=== PATIENT | female | born 1970 | race Caucasian/White ===

== ENCOUNTER 2021-04-09 06:09 | Emergency (ER) | payer MEDICAID, SELFPAY ==
[2021-04-09 06:12] VITALS: BP 126/74; PULSE 70; RESP 16; TEMP 36.2; O2SAT 97; BMI 31.4
--- NOTE | 2021-04-09 06:27 | CT_ITS ---
STUDY: CT BRAIN WITHOUT CONTRAST REASON FOR EXAM: Female, 50 years old. trauma, headache RADIATION DOSAGE (If Supplied By Facility): CTDIvol = ( 44.99 ) mGy, DLP = ( 745.49 ) mGycm TECHNIQUE: Transaxial CT imaging of the brain was performed without administration of intravenous contrast material. Individualized dose optimization techniques were used for this CT. COMPARISON: No relevant priors. FINDINGS: Normal soft tissue structures. Normal calvarium. Normal size ventricles and extra-axial spaces for the patient''s age. Normal white matter tracts of the cerebral hemispheres. Normal basal ganglia and thalami. Normal brainstem. Normal cerebellum. There is no intracranial hemorrhage. There are no findings of an acute ischemic infarction. Normal visualized paranasal sinuses. CT/Brain/Head without Contrast IMPRESSION: Normal unenhanced CT scan of the brain. Electronically Signed: Rodri Dan MD at 7:58 EST Tel , Service support ,
--- NOTE | 2021-04-09 06:31 | CT_ITS ---
STUDY: CT FACIAL BONES WITHOUT CONTRAST REASON FOR EXAM: Female, 50 years old. trauma, facial pain RADIATION DOSAGE (If Supplied By Facility): CTDIvol = ( 29.38 ) mGy, DLP = ( 554.80 ) mGycm TECHNIQUE: The patient was scanned in a multi detector CT scanner. Sagittal and coronal images were reconstructed. Individualized dose optimization techniques were used for this CT. COMPARISON: None. FINDINGS: Normal soft tissue structures. Acute fracture the floor the left orbit with herniation of intraorbital fat into the roof of the maxillary sinus and a small amount of hemorrhage in the maxillary sinus. No entrapment of the inferior rectus muscle. Normal nasal bones and anterior nasal spine. Normal facial bones. There is no demonstrated fracture. Normal visualized paranasal sinuses. CT/Sinus/Facial Bone IMPRESSION: Acute left orbital floor fracture. Electronically Signed: Rodri Dan MD at 8:08 EST Tel , Service support ,
--- NOTE | 2021-04-09 06:32 | EKG12_ITS ---
Test Reason : ABD PAIN Blood Pressure : / mmHG Vent. Rate : 074 BPM Atrial Rate : 074 BPM P-R Int : 170 ms QRS Dur : 090 ms QT Int : 428 ms P-R-T Axes : 028 011 008 degrees QTc Int : 475 ms Normal sinus rhythm Normal ECG Confirmed by REGGIE SAUCEDO, CONNIE ([id number]), technical writer and editor HAKEEM PEARL ([id number]) on 04/11/2021 8:07:23 AM Referred By: BB Confirmed By:CONNIE PAREDES MD
--- NOTE | 2021-04-09 06:33 | EDS_ITS ---
HPI History of Present Illness Chief Complaint: Abd Pain Informant: patient Narrative Narrative: For the past 3 days, patient has had heavy menstrual cycles. Her last couple cycles have been like this, she thinks she may be going through menopause here soon. This morning she had gotten up, soon thereafter she had some very intense lower abdominal pain/cramping, and this was followed by lightheadedness, and she remembers feeling like she was going to pass out and woke up on the floor having had passed out, and hit her head/face. She states this is never happened before. She denies any other prodromal symptoms except for the abdominal cramping and lightheadedness. No chest pain, shortness of breath, palpitations or racing heartbeat, focal neurologic symptoms, or headache although she has one now after having hit her head on the floor she thinks. She was in her bathroom. No recent illness otherwise. Patient states now the abdominal pain is resolved and although her head hurts, her abdomen does not anymore. PFSH PFSH Medical History no medical history no medical history Home Medications promethazine 25 mg PO Q6H PRN PRN #10 tablet 04/09/21 [Rx Last Taken Unknown] trazodone 150 mg PO QHS PRN 04/09/21 [History Last Taken Unknown] Allergy/AdvReac Type Severity Reaction Status Date / Time No Known Allergies Allergy Verified 04/09/21 06:11 Surgical History no surgical history no surgical history Social History Smoking Status: Never smoker ROS ROS ED Constitutional Constitutional ED: Denies chills or fever(s) Eyes Eyes: Denies change in vision or diplopia ENT ENT ED: Reports facial pain; Denies rhinorrhea or sore throat Cardiovascular Cardiovascular: Denies chest pain or palpitations Respiratory/Chest Respiratory/Chest: Denies cough or dyspnea Gastrointestinal Gastrointestinal: Reports abdominal pain and nausea; Denies diarrhea or vomiting Genitourinary Genitourinary ED: Denies dysuria or hematuria Musculoskeletal Musculoskeletal: Denies back pain or neck pain Integumentary Reports laceration; Denies abscess or rash Neurologic Neurologic: Reports as per HPI, headache(s) and syncope; Denies paresthesias or weakness Psychiatric Psychiatric: Denies anxiety or suicidal thoughts EXAM Physical Exam Const Vital Signs: 04/09/21 06:12 Temperature 97.2 F L Temperature Source Temporal Pulse Rate 70 Respiratory Rate 16 Blood Pressure 126/74 H Blood Pressure Mean 91 Pulse Ox 97 Oxygen Delivery Method Room Air Positive well nourished and well developed General Appearance ED: well developed and NAD HEENT Reports EAC's normal, TM's normal bilaterally and moist mucous membranes HEENT Narrative: No midface instability but tenderness in the left maxilla, across the frontal bone, and around the left orbit. No periorbital edema, no deformities, no zygomatic tenderness, no nasal bone tenderness or epistaxis, no trismus or jaw tenderness, no signs of globe injury. normocephalic, atraumatic, laceration Laceration Details: Positive for linear and other (Left cheek, full-thickness) Laceration Size: 2.5cm and other; Negative for Browning's sign or raccoon eyes Eyes PERRL and EOMs intact bilaterally Eyes Narrative: No extraocular entrapment or pain with movement. Visual van all intact. Neck full ROM and supple Resp normal respiratory effort and clear to auscultation bilaterally Cardio regular rate, regular rhythm and no murmurs GI non-tender and non-distended Auscultation: normoactive bowel sounds Palpation: soft; Negative for pulsatile mass Back/Spine no CVA tenderness General Back: other FROM Extremity normal to inspection General Extremety ED: Negative for edema, pulses abnormal or tenderness General Extremity: Negative for edema or pulses abnormal Neuro oriented x3, CN's II-XII intact bilaterally and no sensory deficits noted Sensorium / Orientation: awake and alert Motor Exam: strength 5/5 throughout Skin no rashes or lesions noted Skin Narrative: 2.5 cm linear clean full-thickness laceration left cheek MDM MDM MDM Narrative Medical decision making narrative: My suspicion is that patient had a vagal episode from menstrual cramping that occurred just prior to the episode. She said the abdominal pain which is currently resolved did feel like menstrual pains. She is a little anemic at 9.4, but not low enough to cause any need for admission, blood transfusion, etc. I do not have any old/prior measurements for her to compare to. It is microcytic, and quite possibly stable for her normal. Other chemistries and troponin normal. Since her EKG is normal, and she had no concerning symptoms of angina, I do not think she needs a delta measurement. Her laceration was repaired. Nurses will perform orthostatics, she will get 1/2 L of saline regardless, and she was treated with Zofran, Tylenol for her symptoms. Patient underwent CT of the head and face to rule out intracranial or bony injuries, these scans are unremarkable. I suspect her syncopal episode occurred as a result of a vasovagal reaction triggered by the abdominal/pelvic pain. Her vital signs are normal, she has no tenderness or pulsatile mass in her abdomen and I do not think she had any intra-abdominal catastrophe here. She still feels a little nauseated and has a headache, so we will additionally give her Reglan and Toradol, and after her fluids will discharge her with a prescription for more Reglan if needed. Close outpatient follow-up advised, she is comfortable with that plan. Lab Data Attestation: I reviewed the patient's lab results. Labs: Laboratory Results - last 24 hr 04/09/21 04/09/21 06:12 06:12 WBC 9.8 RBC 4.36 Hgb 9.4 L Hct 31.2 L MCV 71.6 L MCH 21.6 L MCHC 30.1 L RDW Std Deviation 42.0 RDW Coeff of Avinash 16.4 H Plt Count 436 MPV 10.3 Immature Gran % (Auto) 0.400 Neut % (Auto) 52.8 Lymph % (Auto) 36.9 Hendricks % (Auto) 7.3 Eos % (Auto) 2.2 Baso % (Auto) 0.4 Absolute Neuts (auto) 5.2 Absolute Lymphs (auto) 3.60 Nucleated RBC % 0 Sodium 138 Potassium 3.6 Chloride 108 H Carbon Dioxide 23.0 Anion Gap 7 BUN 16 Creatinine 0.82 Estim Creat Clear Calc 76.84 Est GFR (MDRD) Af Amer 95 Est GFR (MDRD) Non-Af 79 BUN/Creatinine Ratio 19.6 Glucose 166 H Calcium 8.3 L Troponin I High Sens 4 EKG Initial EKG: Attestation: I personally reviewed and interpreted this EKG as follows: Interpretation: Sinus Rhythm (74) and No Acute Injury Pattern Comments: normal EKG Procedures Lacerations L cheek: Length: 2.5 cm Depth: Sub Q Shape: Linear Prep: Sterile Conditions and Chlorhexadine Laceration repair: Lidocaine with epi (2cc), Local and Skin sutures Number of Sutures/Silva: 3 Suture Information: Ethilon, Simple and 6-0 Discharge Plan Triage Chief Complaint: Abd Pain ED Provider: Jackson Christiansen Dx/Rx/DC Orders Clinical Impression: Syncope, Facial laceration, Menorrhagia, Microcytic anemia, Closed head injury Instructions: ED Laceration: All Closures, ED Fainting, Vagal Reaction Prescriptions: New promethazine [promethazine] 25 MG tablet 25 mg PO Q6H PRN PRN (Reason: Nausea) Qty: 10 RF: 0 No Action trazodone 150 mg Tablet 150 mg PO QHS PRN (Reason: Sleep) RF: 0 Primary Care Provider: NOT,DEFINED Referrals: doctor and/or OB, your [Other] (Follow-up for suture removal from your facial laceration 5-7 days, and consider following up with your GIS SOFTWARE DEVELOPER regarding your cycles.) NOT,DEFINED [Primary Care Provider] - Activity Restrictions/Additional Instructions: Tylenol and/or ibuprofen as needed for headaches. Disposition Disposition: Home, Self Care
[2021-04-09 06:37] LABS: Absolute Neutrophil Count 5.2 X10^3/uL (2.0-7.7); Basophil# 0.04 X10^3/uL; Basophil% 0.4 % (0-1); Eosinophil# 0.21 X10^3/uL; Eosinophils% 2.2 % (0-5); Hematocrit 31.2 % (37-47); Hemoglobin 9.4 g/dL (12.0-15.0); Lymphocyte % 36.9 % (19-41); Mean Corp Hgb Conc 30.1 g/dL (32-36); Mean Corpuscular Hgb 21.6 pg (27.0-32.0); Mean Corpuscular Volume 71.6 fL (81-99); Mean Platelet Vol. 10.3 fl (6.2-12.0); Monocyte# 0.71 X10^3/uL; Monocyte% 7.3 % (0-10); NRBC Flagged by Analyzer 0 % (0-5); Neutrophil # 5.15 X10^3/uL (2.7-7.7); Neutrophil % 52.8 % (47-70); Platelet Count 436 K/mm3 (150-450); RBC Distribution Width CV 16.4 % (11.6-14.6); Red Blood Count 4.36 M/mm3 (4.2-5.4); White Blood Count 9.8 K/mm3 (4.4-11.0)
[2021-04-09] MEDS: Ondansetron 4 MG/2 ML Vial IV (06:40)
[2021-04-09] MEDS: Lidocaine 1% /Epi 1:100 (20ml) 20 ML Vial INFILT (06:40)
[2021-04-09] MEDS: Acetaminophen 500 MG Tablet 1000 MG PO (06:40)
[2021-04-09 06:52] LABS: Anion Gap 7 (5-15); BUN 16 mg/dL (7-18); BUN/Creat Ratio 19.6 RATIO (10-20); Calcium,Total 8.3 mg/dL (8.5-10.1); Chloride 108 mmol/L (98-107); Creatinine, Serum 0.82 mg/dL (0.55-1.02); EST Glomerular Filtration Rate 79 mL/min (>60); Est Glom Filt Rate - Afr Amer 95 mL/min (>60); Estimated Creatinine Clearance 76.84 ml/min; Glucose 166 mg/dL (74-106); Potassium 3.6 mmol/L (3.5-5.1); Sodium Level 138 mmol/L (136-145); Troponin-I HS 4 pg/mL (3.0-54.0)
[2021-04-09] MEDS: Metoclopramide 10 MG/2 ML Vial 5 MG IV (07:50)
[2021-04-09] MEDS: Ketorolac 15 MG/ML Vial IV (07:52)
[2021-04-09 07:55] VITALS: BP 101/61; BP 115/69; BP 117/69; PULSE 71; PULSE 76
[2021-04-09 08:22] VITALS: BP 117/69; PULSE 82; RESP 16
== END 2021-04-09 08:31 | disposition home or self-care (01) ==
PROVIDERS: Emergency Provider Emergency Medicine
DX: S02.32XB Fracture of orbital floor, left side, initial encounter for open fracture (principal); N92.0 Excessive and frequent menstruation with regular cycle; D50.9 Iron deficiency anemia, unspecified; R55 Syncope and collapse; W18.30XA Fall on same level, unspecified, initial encounter; Y93.89 Activity, other specified; Y92.009 Unspecified place in unspecified non-institutional (private) residence as the place of occurrence of the external cause; Y99.8 Other external cause status
CPT/HCPCS: 12011; 70450; 70486; 80048; 84484; 85025; 93005; 96361; 96374; 96375; 99285; J7040; A4216; J2405

== ENCOUNTER 2021-10-15 12:19 | Emergency (ER) | payer MEDICAID, SELFPAY ==
[2021-10-15 12:19] VITALS: BP 102/58; BP 125/69; PULSE 48; PULSE 58; RESP 21; TEMP 36.4; O2SAT 89; O2SAT 96; BMI 34.0
--- NOTE | 2021-10-15 12:30 | EKG12_ITS ---
Test Reason : CODE Blood Pressure : / mmHG Vent. Rate : 045 BPM Atrial Rate : 045 BPM P-R Int : 262 ms QRS Dur : 142 ms QT Int : 390 ms P-R-T Axes : 020 085 031 degrees QTc Int : 337 ms Junctional rhythm Right bundle branch block Septal infarct , age undetermined Abnormal ECG Confirmed by STEFAN SAUCEDO, EDNA ([id number]), sports editor HAKEEM PEARL ([id number]) on 10/16/2021 1:46:14 PM Referred By: Jj Siddiqui Confirmed By:EDNA AVILES MD
--- NOTE | 2021-10-15 12:32 | EKG12_ITS ---
Test Reason : CODE Blood Pressure : / mmHG Vent. Rate : 129 BPM Atrial Rate : 122 BPM P-R Int : 000 ms QRS Dur : 148 ms QT Int : 332 ms P-R-T Axes : 000 059 256 degrees QTc Int : 486 ms Wide QRS tachycardia Left bundle branch block Abnormal ECG Confirmed by STEFAN SAUCEDO, EDNA ([id number]), technical writer and editor HAKEEM PEARL ([id number]) on 10/16/2021 1:46:39 PM Referred By: Jj Siddiqui Confirmed By:EDNA AVILES MD
--- NOTE | 2021-10-15 12:35 | EKG12_ITS ---
Test Reason : CODE Blood Pressure : / mmHG Vent. Rate : 096 BPM Atrial Rate : 081 BPM P-R Int : 124 ms QRS Dur : 128 ms QT Int : 328 ms P-R-T Axes : 102 076 -22 degrees QTc Int : 414 ms Poor data quality, interpretation may be adversely affected Sinus rhythm and VTach Right bundle branch block T wave abnormality, consider inferior ischemia Abnormal ECG Confirmed by STEFAN SAUCEDO, EDNA ([id number]), continuity editor HAKEEM PEARL ([id number]) on 10/16/2021 1:47:11 PM Referred By: Jj Siddiqui Confirmed By:EDNA AVILES MD
--- NOTE | 2021-10-15 12:56 | ED.RN ---
TOD 125
--- NOTE | 2021-10-15 13:10 | EDS_ITS ---
HPI History of Present Illness Chief Complaint: CPR Narrative Narrative: Patient presents via EMS with chief complaint of syncope. It was reported that she had a syncopal episode yesterday, and earlier today. Her history and physical is limited secondary to her condition. Upon arrival to the ED, EMS was giving report that she had a blood sugar in the 150s and that she looked ashen and vomited once. She reportedly had been having heavy vaginal bleeding. According to her mother, patient did not feel well yesterday and had a syncopal episode yesterday, and she called and texted stating that she was feeling better this morning. However, on arrival to the emergency department, patient became pulseless, and CODE BLUE was started prior to being able to obtain history and physical examination. PFSH PFSH Home Medications hydrocodone-acetaminophen 1 tab PO Q6H PRN PRN 3 Days #12 tablet 04/09/21 [Rx Last Taken Unknown] promethazine 25 mg PO Q6H PRN PRN #10 tablet 04/09/21 [Rx Last Taken Unknown] trazodone 150 mg PO QHS PRN 04/09/21 [History Last Taken Unknown] Allergy/AdvReac Type Severity Reaction Status Date / Time No Known Allergies Allergy Verified 04/09/21 06:11 Social History Smoking Status: Never smoker ROS ROS ED ROS Narrative Unable to obtain secondary to patient condition/cardiac arrest. Review of Systems ROS Unobtainable: due to encephalopathy, due to endotracheal tube, due to mental condition, due to mental status and other EXAM Physical Exam Narrative Exam Narrative: GCS 3, CPR in progress HEENT: Normocephalic. Atraumatic. Cardiovascular: CPR in progress, no auscultated heart sounds. Palpable pulses with compressions. Respiratory: No spontaneous respirations. Gastrointestinal: Abdomen soft, nontender, with normoactive bowel sounds. No r ebound or guarding. Neurological: Unresponsive to sternal rub Skin: No rash. Normal color. Positive pallor. Musculoskeletal: No pedal edema. . Const Vital Signs: 10/15/21 12:19 Temperature 97.6 F L Temperature Source Temporal Pulse Rate [10] 58 L Pulse Rate [4] 48 L Respiratory Rate [4] 21 H Blood Pressure 102/58 L Blood Pressure [10] 125/69 H Pulse Ox 96 Oxygen Delivery Method Nasal Cannula Oxygen Flow Rate (L/min) 2 MDM MDM MDM Narrative Medical decision making narrative: ACLS protocol was instituted. I performed emergent intubation using a glide scope with MAC 3 blade. 7.5 ET tube was inserted without difficulty. Patient received multiple rounds of epinephrine and CPR. She briefly had return of spontaneous circulation, but then experienced bradycardia and PEA. Her initial EKG did show a wide-complex, undetermined rhythm. Second EKG did show ventricular tachycardia at [address] elevation in V1 and V2 with ST depression in the inferior leads consistent with ventricular tachycardia. She received amiodarone 300 mg bolus intravenously. Code STEMI was activated given her young age and the ventricular tachycardia. The EKG demonstrates sinus bradycardia at 45 bpm with a right bundle branch block. This is actually a PEA rhythm. Dr. Victoria at the bedside. However, patient experienced PEA and no return of spontaneous c irculation. She was pronounced by myself at 12:53 PM. Her mother is in the waiting room and states that the patient had not had medical care for months and has no primary care physician. She denied that she had any significant past medical history. [employer]'s office was called by transmitter engineer in charge. Disposition is . Critical Care Time Critical care time (excluding procedures): 30-74 minutes (32), Including time spent:, Discussing w/Patient &/or Family/Measuring Machine Tender, Discussing w/Consultants and Performing Direct Patient Care at Bedside Discharge Plan Triage Chief Complaint: CPR ED Provider: Cash Banda Dx/Rx/DC Orders Prescriptions: No Action trazodone 150 mg Tablet 150 mg PO QHS PRN (Reason: Sleep) RF: 0 promethazine [promethazine] 25 MG tablet 25 mg PO Q6H PRN PRN (Reason: Nausea) Qty: 10 RF: 0 hydrocodone-acetaminophen [hydrocodone-acetaminophen] 1 TABLET tablet 1 tab PO Q6H PRN PRN (Reason: Pain) 3 Days Qty: 12 RF: 0 Primary Care Provider: Care Physician,No Primary Referrals: Care Physician,No Primary [Primary Care Provider] - Disposition Disposition: Discharge Date/Time: 10/15/21 14:00 Date/Time: 10/15/21 12:53
--- NOTE | 2021-10-15 13:39 | ED.RN ---
600 mL NS given
== END 2021-10-15 14:00 ==
PROVIDERS: Emergency Provider Emergency Medicine; Referring Provider Internal Medicine Interventional Cardiology; Visit Provider Emergency Medicine
DX: I46.9 Cardiac arrest, cause unspecified (principal); I47.2 Ventricular tachycardia; R11.10 Vomiting, unspecified; I45.10 Unspecified right bundle-branch block; R00.1 Bradycardia, unspecified; R55 Syncope and collapse
CPT/HCPCS: 99281 ×2; 31500; 92950; 93005; 99282; A4216